=== PATIENT | male | born 2000 | race Caucasian/White ===

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

== ENCOUNTER → 2024-07-15 | Outpatient (CLI) | payer OTHER ==
[~2024-07-15] MED LIST: ADDE1TAB14 PO; LEXA1TAB PO
[2024-07-15 09:17] LABS: BASO % 0.7 % (0.0-1.0); EOS # 0.2 10^3/uL (0.0-0.5); EOS % 2.8 % (0.0-3.0); HEMATOCRIT 44.7 % (42.0-52.0); HEMOGLOBIN 15.1 g/dl (13.5-17.5); LYMPH # 1.7 10^3/uL (1.5-5.0); LYMPH % 31.2 % (24.0-44.0); MEAN CORPUSCULAR HEMOGLOBIN 30.1 pg (27.0-33.0); MEAN CORPUSCULAR HGB CONC 33.8 g/dl (32.0-36.5); MONO # 0.5 10^3/uL (0.0-0.8); MONO % 9.1 % (2.0-8.0); PLATELET COUNT, AUTOMATED 150 10^3/uL (150-450); RED BLOOD COUNT 5.02 10^6/uL (4.30-6.10); WHITE BLOOD COUNT 5.4 10^3/uL (4.0-10.0)
[2024-07-15 09:43] LABS: PERCENT SATURATION 35.3 % (19.7-50.0)
[2024-07-15 09:47] LABS: FREE T4 1.17 NG/DL (0.89-1.76); THYROID STIMULATING HORMONE 1.665 uIU/ML (0.55-4.78)
[2024-07-15 09:48] LABS: TOTAL 25(OH) VITAMIN D 26.6 NG/ML (20.0-100.0)
== END ==
LOC: M LAB 08:29
PROVIDERS: ATTEND Nurse Practitioner Adult Health
DX: D50.9 Iron deficiency anemia, unspecified (principal); E55.9 Vitamin D deficiency, unspecified; F41.1 Generalized anxiety disorder

== ENCOUNTER → 2024-10-09 | Outpatient (CLI) | payer OTHER ==
[2024-10-09 18:04] LABS: HEPATITIS B SURFACE ANTIGEN NEGATIVE (NEGATIVE)
[2024-10-09 18:17] LABS: HIV 1&2 SCREEN NEGATIVE (NEGATIVE)
[2024-10-09 18:26] LABS: HEPATITIS B CORE ANTIBODY IGM NEGATIVE (NEGATIVE); HEPATITIS C VIRUS ABY INDEX < 0.02 INDEX (<0.8)
[2024-10-09 20:51] LABS: GC DNA AMPLIFICATION NEGATIVE (NEGATIVE)
[2024-10-11 13:38] LABS: HSV 1 IGG TYPE SPECIFIC < 0.90 index (<0.90); HSV 2 IGG TYPE SPECIFIC < 0.90 index (<0.90)
== END ==
LOC: M LAB 16:56
PROVIDERS: ATTEND Nurse Practitioner Adult Health
DX: Z11.3 Encounter for screening for infections with a predominantly sexual mode of transmission (principal)